=== PATIENT | female | born 1960 | race Hispanic/Latino ===

== ENCOUNTER 2018-11-25 13:52 | Emergency (ER) | payer MEDICAID ==
[2018-11-25] MEDS ORDERED: PROVENTIL IH PRN (17:12)
[2018-11-25] MEDS ORDERED: ATIVAN IM PRN (17:13)
[2018-11-25] MEDS ORDERED: HALDOL IM PRN (17:13)
[2018-11-25] MEDS ORDERED: ROXICODONE PO ONE (17:15)
--- NOTE | 2018-11-25 17:17 | Emergency Department Report ---
ED General Adult HPI - General Chief complaint: Psych Stated complaint: PSYCH Time Seen by Provider: 11/25/18 17:00 Source: patient, RN notes reviewed Mode of arrival: Ambulatory Limitations: No Limitations - History of Present Illness Initial comments: This is a 58-year-old female. The patient is not known to this provider previously. She reports that her primary care doctor is Dr. Savage. She reports that her private psychiatrist is Dr. Freeman in [place] Past medical history includes chronic respiratory failure, presumed COPD, on home oxygen, diabetes, hypothyroidism, bipolar, schizophrenia, presumed GERD, gastritis The patient presents to the emergency room today with complaint of pain in the suicidality. She reports that she is suicidal and depressed as her grandson is going to join the , one daughter is reportedly addicted to methamphetamines, and another daughter is reportedly in long-term. The patient reports nonspecific hallucinations, and she'll not further clarify. She believes that she may take lithium and Depakote. She thinks that she may overdose. She also makes passive homicidal comments. She denies physical pain at this time. She denies headache, neck pain, chest pain, abdominal pain, urinary symptoms. The patient has chronic shortness of breath, which is not new, worsening or different. She has chronic back pain, and reportedly is on chronic narcotics for this. -: Gradual, hour(s) Severity scale (0 -10): 0 Consistency: constant Improves with: none Worsens with: none Associated Symptoms: denies other symptoms, other (back pain, chronic shortness of breath) - Related Data Home Medications Medication Instructions Recorded Confirmed Last Taken ALPRAZolam [Xanax XR TAB] 2 mg PO TID 11/25/18 11/25/18 Unknown Amlodipine Besylate [Norvasc] 5 mg PO 11/25/18 Unknown Benztropine [Cogentin] 2 mg PO BID 11/25/18 11/25/18 Unknown FLUoxetine [PROzac] 11/25/18 Unknown Levothyroxine 0.175 mg 11/25/18 Unknown Lisinopril [Prinivil] 10 mg PO 11/25/18 Unknown Omeprazole 20 mg PO 11/25/18 Unknown Tiotropium [Spiriva] 18 mcg IH QDAY 11/25/18 11/25/18 Unknown Topiramate [Topamax] 100 mg PO DAILY 11/25/18 11/25/18 Unknown glyBURIDE/METFORMIN HCL 5 mg PO BID 11/25/18 11/25/18 Unknown [Glyburide-Metformin 5-500 mg] Previous Rx's Medication Instructions Recorded Last Taken Type HYDROcodone/APAP 7.5-325 [[place] 1 each PO Q6HR PRN #10 tablet 09/01/13 Unknown Rx 7.5-325 mg TAB] Allergies Allergy/AdvReac Type Severity Reaction Status Date / Time ketorolac tromethamine AdvReac Rash Verified 08/31/13 18:59 [From Toradol] morphine AdvReac Rash Verified 08/31/13 18:59 ED Review of Systems ROS: Stated complaint: PSYCH Other details as noted in HPI Constitutional: weakness Eyes: denies: eye discharge Respiratory: shortness of breath Cardiovascular: denies: chest pain Gastrointestinal: denies: abdominal pain Genitourinary: denies: dysuria Musculoskeletal: back pain Neurological: weakness Psychiatric: anxiety, depression, homicidal thoughts, suicidal thoughts ED Past Medical Hx - Past Medical History Hx Hypertension: Yes Hx Diabetes: Yes Hx Psychiatric Treatment: Yes (bipolar schziophrenia) - Surgical History Hx Cholecystectomy: Yes Hx Appendectomy: Yes - Social History Smoking Status: Never Smoker Substance Use Type: None - Medications Home Medications: Home Medications Medication Instructions Recorded Confirmed Last Taken Type HYDROcodone/APAP 7.5-325 [[place] 1 each PO Q6HR PRN #10 tablet 09/01/13 11/25/18 Unknown Rx 7.5-325 mg TAB] ALPRAZolam [Xanax XR TAB] 2 mg PO TID 11/25/18 11/25/18 Unknown History Amlodipine Besylate [Norvasc] 5 mg PO 11/25/18 Unknown History Benztropine [Cogentin] 2 mg PO BID 11/25/18 11/25/18 Unknown History FLUoxetine [PROzac] 11/25/18 Unknown History Levothyroxine 0.175 mg 11/25/18 Unknown History Lisinopril [Prinivil] 10 mg PO 11/25/18 Unknown History Omeprazole 20 mg PO 11/25/18 Unknown History Tiotropium [Spiriva] 18 mcg IH QDAY 11/25/18 11/25/18 Unknown History Topiramate [Topamax] 100 mg PO DAILY 11/25/18 11/25/18 Unknown History glyBURIDE/METFORMIN HCL 5 mg PO BID 11/25/18 11/25/18 Unknown History [Glyburide-Metformin 5-500 mg] ED Physical Exam - General Limitations: No Limitations General appearance: alert, in no apparent distress - Head Head exam: Present: atraumatic, normocephalic - Eye Eye exam: Present: normal appearance, EOMI. Absent: nystagmus - ENT ENT exam: Present: normal exam, normal orophraynx, mucous membranes moist, n ormal external ear exam - Neck Neck exam: Present: normal inspection, full ROM. Absent: tenderness, meningismus - Respiratory Respiratory exam: Present: normal lung sounds bilaterally. Absent: respiratory distress - Cardiovascular Cardiovascular Exam: Present: regular rate, normal rhythm, normal heart sounds. Absent: bradycardia, tachycardia, irregular rhythm, systolic murmur, diastolic murmur, rubs, gallop - GI/Abdominal GI/Abdominal exam: Present: soft. Absent: distended, tenderness, guarding, rebound, rigid, pulsatile mass - Extremities Exam Extremities exam: Present: normal inspection, full ROM. Absent: pedal edema, joint swelling - Back Exam Back exam: Present: normal inspection, full ROM. Absent: tenderness, CVA tenderness (R), paraspinal tenderness, vertebral tenderness - Neurological Exam Neurological exam: Present: alert, oriented X3, normal gait, other (Extraocular movements intact. Tongue midline. No facial droop. Facial sensation intact to light touch in the V1, V2, V3 distribution bilaterally. 5 and 5 strength in 4 extremities.. Sensation is intact to light touch in 4 extremities.). Absent: motor sensory deficit - Psychiatric Psychiatric exam: Present: normal affect, normal mood - Skin Skin exam: Present: warm, dry, intact, normal color. Absent: rash ED Course Vital Signs 11/25/18 11/25/18 16:17 16:26 Temperature 97.2 F L 97.2 F L Pulse Rate 103 H 93 H Respiratory 14 Rate Blood Pressure 103/71 Blood Pressure 103/71 [Right] O2 Sat by Pulse 96 Oximetry ED Medical Decision Making - Lab Data Result diagrams: 11/25/18 17:17 11/25/18 17:17 Vital Signs 11/25/18 11/25/18 16:17 16:26 Temperature 97.2 F L 97.2 F L Pulse Rate 103 H 93 H Respiratory 14 Rate Blood Pressure 103/71 Blood Pressure 103/71 [Right] O2 Sat by Pulse 96 Oximetry Lab Results 11/25/18 11/25/18 11/25/18 Range/Units 17:17 17:17 17:17 WBC 10.1 (4.5-11.0) K/mm3 RBC 4.23 (3.65-5.03) M/mm3 Hgb 12.7 (10.1-14.3) gm/dl Hct 36.4 (30.3-42.9) % MCV 86 (79-97) fl MCH 30 (28-32) pg MCHC 35 H (30-34) % RDW 15.2 (13.2-15.2) % Plt Count 253 (140-440) K/mm3 Sodium 142 (137-145) mmol/L Potassium 4.2 (3.6-5.0) mmol/L Chloride 105.3 (98-107) mmol/L Carbon Dioxide 26 (22-30) mmol/L Anion Gap 15 mmol/L BUN 13 (7-17) mg/dL Creatinine 0.7 (0.7-1.2) mg/dL Estimated GFR > 60 ml/min BUN/Creatinine Ratio 19 % Glucose 72 (65-100) mg/dL Calcium 9.4 (8.4-10.2) mg/dL Total Creatine Kinase 44 (30-135) units/L Salicylates (2.8-20.0) mg/dL Acetaminophen (10.0-30.0) ug/mL Valproic Acid (50-100) ug/mL [place] (0.0-1.2) mmol/L Plasma/Serum Alcohol < 0.01 (0-0.07) % 11/25/18 11/25/18 Range/Units 17:23 17:23 WBC (4.5-11.0) K/mm3 RBC (3.65-5.03) M/mm3 Hgb (10.1-14.3) gm/dl Hct (30.3-42.9) % MCV (79-97) fl MCH (28-32) pg MCHC (30-34) % RDW (13.2-15.2) % Plt Count (140-440) K/mm3 Sodium (137-145) mmol/L Potassium (3.6-5.0) mmol/L Chloride (98-107) mmol/L Carbon Dioxide (22-30) mmol/L Anion Gap mmol/L BUN (7-17) mg/dL Creatinine (0.7-1.2) mg/dL Estimated GFR ml/min BUN/Creatinine Ratio % Glucose (65-100) mg/dL Calcium (8.4-10.2) mg/dL Total Creatine Kinase (30-135) units/L Salicylates < 0.3 L (2.8-20.0) mg/dL Acetaminophen < 5.0 L (10.0-30.0) ug/mL Valproic Acid < 2.8 L (50-100) ug/mL [place] 0.1 (0.0-1.2) mmol/L Plasma/Serum Alcohol (0-0.07) % - Medical Decision Making Differential diagnosis, including but not limited to: Depression, suicidality, mood disorder, medical clearance for psychiatric placement Assessment and plan: 58-year-old female with depression, suicidality and homicidality. He does not have any acute medical complaint, with the exception of chronic back pain. Patient walks with a steady gait, is clinically sober, has a GCS of 15. Screening laboratory studies so far unremarkable. Urinalysis pending, although the patient does not endorse any irritative or obstructive urinary symptoms. Patient is placed on a 1013. We will continue her outpatient medications. Counseled patient on the significance of a 1013. A psychiatric consultation will be obtained. At this point in time, there does not appear to be an immediate medical contraindication to psychiatric evaluation, consultation and placement. Crisis team is informed, paged at this time. Critical care attestation.: If time is entered above; I have spent that time in minutes in the direct care of this critically ill patient, excluding procedure time. ED Disposition Clinical Impression: Medical clearance for psychiatric admission Disposition: [id number]/[id number] PSY HOSP/PSY UNIT Is pt being admited?: No Does the pt Need Aspirin: No Condition: Good Referrals: [facility] MD [Primary Care Provider] - 3-5 Days
[2018-11-25 17:37] LABS: Hematocrit 36.4 % (30.3-42.9); Hemoglobin 12.7 gm/dl (10.1-14.3); Mean Corpuscular HGB Conc 35 % (30-34); Mean Corpuscular Volume 86 fl (79-97); Platelet Count 253 K/mm3 (140-440); Red Blood Count 4.23 M/mm3 (3.65-5.03); Red Cell Distribution Width 15.2 % (13.2-15.2)
[2018-11-25 17:53] LABS: BUN/Creatinine Ratio 19; Blood Urea Nitrogen 13 mg/dL (7-17); Calcium 9.4 mg/dL (8.4-10.2); Hemolysis Index 6
[2018-11-25] MEDS ORDERED: TYLENOL PO PRN (18:35)
[2018-11-25] MEDS ORDERED: NON-FORMULARY (Omeprazole [Omeprazole] 20 MG) PO SCH (18:45)
[2018-11-25] MEDS: NORVASC PO SCH (19:20)
[2018-11-25] MEDS: ZESTRIL PO SCH (19:20)
[2018-11-25] MEDS ORDERED: ALPRAZOLAM 2 MG PO SCH (20:00)
[2018-11-25] MEDS ORDERED: ROXICODONE ONE (20:02)
[2018-11-25] MEDS: SPIRIVA IH SCH (20:52)
[2018-11-25] MEDS: GLUCOPHAGE PO SCH (20:53)
[2018-11-25] MEDS: TOPAMAX PO SCH (20:53)
[2018-11-25] MEDS: DIABETA PO SCH (20:53)
[2018-11-25] MEDS: XANAX PO SCH (20:54)
[2018-11-25 21:24] LABS: Bilirubin,Urine NEG (Negative); Blood,Urine NEG (Negative); Color,Urine Straw (Yellow); Protein,Urine <15 mg/dL mg/dL (Negative); RBC,Urine < 1.0 /HPF (0.0-6.0); Urobilinogen,Urine < 2.0 mg/dL (<2.0)
[2018-11-25 21:29] LABS: Amphetamine Screen,Urine PRESUMPTIVE NEGATIVE; Cannabinoid Screen,Urine PRESUMPTIVE NEGATIVE; Cocaine Screen,Urine PRESUMPTIVE NEGATIVE; Methadone Screen,Urine PRESUMPTIVE NEGATIVE; Opiate Screen,Urine PRESUMPTIVE NEGATIVE
[2018-11-25] MEDS: PROTONIX PO SCH (21:32)
[2018-11-25 21:41] LABS: Benzodiazepines Screen,Urine PRESUMPTIVE NEGATIVE
[2018-11-25] MEDS ORDERED: METFORMIN PO SCH (22:00)
[2018-11-25] MEDS ORDERED: GLYBURIDE PO SCH (22:00)
[2018-11-25] MEDS ORDERED: PROzac PO SCH (22:00)
[2018-11-25] MEDS: COGENTIN PO SCH (23:10)
[2018-11-26] MEDS: MACROBID PO SCH ×2 (03:58→10:32)
[2018-11-26] MEDS ORDERED: SYNTHROID PO SCH ×2 (06:00)
[2018-11-26] MEDS ORDERED: LEVOTHYROXINE 0.175 MG PO SCH (10:00)
[2018-11-26] MEDS: GLUCOPHAGE PO SCH ×2 (10:27→18:06)
[2018-11-26] MEDS: XANAX PO SCH ×2 (10:27→15:51)
[2018-11-26] MEDS: ZESTRIL PO SCH (10:29)
[2018-11-26] MEDS: NORVASC PO SCH (10:31)
[2018-11-26 10:32] VITALS: BP 126/68
[2018-11-26] MEDS: PROTONIX PO SCH (10:33)
[2018-11-26] MEDS: SPIRIVA IH SCH (10:34)
[2018-11-26] MEDS: TOPAMAX PO SCH (10:34)
[2018-11-26] MEDS: COGENTIN PO SCH (10:42)
[2018-11-26] MEDS: DIABETA PO SCH ×2 (13:31→18:05)
== END 2018-11-26 21:15 ==
LOC: ED 13:52 → EEVIPCON 13:52 → ED 11-26 21:15
DX: F31.9 Bipolar disorder, unspecified (principal); F20.9 Schizophrenia, unspecified; I10 Essential (primary) hypertension; E11.9 Type 2 diabetes mellitus without complications; G89.29 Other chronic pain; R06.02 Shortness of breath; M54.89 Other dorsalgia; Z88.6 Allergy status to analgesic agent; Z90.49 Acquired absence of other specified parts of digestive tract; Z79.899 Other long term (current) drug therapy
CPT/HCPCS: 36415; 80048; 80164; 80178; 80307; 81001; 82550; 82962; 85027; 94640; 96372; 99285; G0480; J2060; 80320; J1630